=== PATIENT | female | born 1940 | race African-American/Black ===

== ENCOUNTER 2017-10-22 07:24 | Day surgery (SDC) | payer OTHER ==
[2017-10-21 09:10] VITALS: BMI 31.1
[~2017-10-22 07:24] MED LIST: LIDOCAINE HCL 1%, 10 MG/ML (20ML VIAL) INF ONE; ceFAZolin SODIUM 1 GM VIAL IVPB ONE
[2017-10-22 07:52] VITALS: TEMP 97.5
[2017-10-22] MEDS ORDERED: oxyCODONE HCL 5 MG TABLET PO PRN ×2 (08:04)
[2017-10-22] MEDS ORDERED: ONDANSETRON 4 MG/2 ML VIAL IVPUSH PRN (08:04)
[2017-10-22] MEDS ORDERED: PROPOFOL 0 ML ONE (08:06)
[2017-10-22] MEDS ORDERED: MIDAZOLAM HCL 2 MG/2 ML SINGLE DOSE VIAL ONE (08:13)
[2017-10-22] MEDS ORDERED: LACTATED RINGERS SOLUTION 1,000 ML IV SCH (08:15)
[2017-10-22] MEDS ORDERED: LIDOCAINE HCL 1%, 10 MG/ML (20ML VIAL) INF ONE (09:24)
[2017-10-22 10:25] VITALS: BP 130/70; PULSE 70
--- NOTE | 2017-10-22 10:42 | OP ---
DATE OF OPERATION: 10/22/2017 PREOPERATIVE DIAGNOSIS: Left axillary mass. POSTOPERATIVE DIAGNOSIS: Left axillary mass. PROCEDURE: Excision of left axillary mass. SURGEON: Basia Hutchinson MD ANESTHESIA: Local. COMPLICATIONS: None. This was a sterile procedure. INDICATION FOR PROCEDURE: Patient presented with a palpable mass in the high left axilla, almost upper arm, that was tender and increasing and doubled in size over the past several months. My recommendation is an exicision of the mass. The procedure was discussed, with all the questions answered. PROCEDURE IN DETAIL: Patient brought to [facility] in [place], taken into the operating room, and after the area was cleansed with Betadine, anesthetized with 1% lidocaine, an ellipse of skin was taken to include the punctum of this skin base lesion, and this was excised en bloc and sent to Pathology for permanent section. Hemostasis was assured with electrocautery. The incision closed in a routine fashion with interrupted 3-0 Vicryl, running 4-0 Biosyn. A sterile dressing of a Tegaderm, 4 x 4 was applied. She tolerated the procedure well and left the operating room in good condition. BASIA HUTCHINSON M.D. [id number] MTDD
--- NOTE | 2017-10-26 15:53 | PATH ---
Surgical Pathology Report Patient Name: VENUS AUSTIN [facility]. Rec. #: [id number] /Age/Gender: 1940 (Age: 77) / F Account: [id number] Location: U SURGICAL Taken: 10/22/2017 Received: 10/22/2017 Reported: 10/26/2017 Physicians: Basia Miller M.D. Specimen(s) Received EXCISION OF LEFT AXILLARY MASS EPIDERMOID CYST Clinical History Palpable mass Ultrasound findings: Probably benign Final Diagnosis AXILLA, LEFT, MASS, "? EPIDERMOID CYST", EXCISION: SKIN AND UNDERLYING SOFT TISSUE WITH DEEP DERMAL SCAR AND FOCAL CHRONIC INFLAMMATION. Comment: Immunohistochemical stain performed and interpreted at [facility] show Smooth muscle myosin (SMM-HC) is negative. Electronically Signed Rachana Mcleod M.D. Gross Description Received in formalin labeled "left axillary mass ? epidermoid cyst," are 2 brown, elliptical, unoriented portions of skin with underlying soft tissue measuring 2.5 x 0.5 cm and 2.5 x 0.7 cm. The epidermal surfaces are unremarkable. The smaller specimen is inked green and the larger specimen is inked blue. The specimens are serially sectioned. No discrete mass is identified. Development Representative sections are submitted in 2 cassettes. A 10/22/201710/22/2017
== END 2017-10-22 10:25 | disposition home or self-care (01) ==
LOC: JASU-SURG 07:24
PROVIDERS: ATTEND Surgery
PROC: 0JB60ZZ Excision of Chest Subcutaneous Tissue and Fascia, Open Approach (ICD-10-PCS; principal; 2017-10-22 08:30)
DX: D21.3 Benign neoplasm of connective and other soft tissue of thorax (principal)
CPT/HCPCS: 88305-TC; 88342-TC